=== PATIENT | male | born 1945 | race Caucasian/White ===

== ENCOUNTER 2017-04-21 06:03 | Emergency (ER) | payer OTHER ==
[2017-04-21 06:11] VITALS: RESP 16
--- NOTE | 2017-04-21 06:59 | EDPHY ---
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 this morning with his right arm numb and weak. Patient actually states that he did not have loss of sensation or the sensation of pins and needles but his arm felt strange. When he tried to reach for things or right he felt his arm was weak from the shoulder down. Does not have a history of the same. Patient states over the course 6 hours seemed to improve a little bit but when he was checking in to the waiting room here he was having a hard time signing his name on the consent form. Does not have a history of any neurologic problems in the past. Does have a history of hypertension but has been not been taking his lisinopril recently as his blood pressure was getting too low. Denies any chest pain or shortness of breath. No hearing or vision changes. Was ambulating without any difficulty. No falls. No recent trauma. Patient states he is currently feeling a bit better but states his arm still feels a bit strange. ROS: 10 point Review of Systems is negative except as noted in the HPI. PMH: Hypertension Social History: No smoking Family History: non-contributory Physical Exam: Gen: Awake, Alert, No Distress HEENT: Nose: no rhinorrhea Eyes: PERRLA, EOMI Mouth: Moist mucosa Neck: Supple, no JVD Chest: nontender, lungs clear to auscultation Heart: S1, S2 normal, no murmur Abd: Soft, non-tender, no guarding Back: no CVA tenderness, no midline tenderness Ext: no edema, non-tender Skin: no rash Neuro: CN II-XII intact, Sensation grossly intact, Strength 5/5 in bilateral upper and lower extremities, normal cerebellar exam Right arm: The patient is neurologically intact in the radial, median, and ulnar nerve distribution. He has normal pinprick sensation in all dermatomes of his right upper extremity. He has normal fence laborer strength. He has normal dexterity with finger tapping. (Brian Abbasi) Constitutional: Initial Vital Signs Temperature (C) 36.5 C 04/21/17 06:07 Heart Rate 84 04/21/17 06:07 Respiratory Rate 16 04/21/17 06:07 Blood Pressure 144/77 H 04/21/17 06:07 O2 Sat (%) 96 04/21/17 06:07 O2 Delivery Mode Room Air Allergies/Adverse Reactions: No Known Allergies Allergy (Unverified 04/21/17 06:05) Home Medications: Medication Instructions Recorded Finasteride 04/21/17 Medical Decision Making - Diagnostics Imaging Results: Imaging Impressions Brain MRI 04/21/17 06:51 Impression: 1. Mild underlying periventricular and deep hemispheric white matter change which is nonspecific and can be seen with small vessel ischemic disease. There is one small focus of abnormal signal intensity in the peripheral cortex with diffusion restriction in the posterior left frontal lobe which could represent a small acute lacunar infarct. Otherwise, no evidence for acute infarct. 2. Generalized cerebral atrophy. Results called and discussed with Keron Alvarez M.D. on April 21, 2017 at 9:58 a.m. Cervical Spine MRI 04/21/17 06:52 Impression: 1. C5-C6: Moderate central canal stenosis and moderate to severe bilateral neural foraminal stenosis secondary to moderate degenerative disk disease with dorsal disk/osteophyte complex, bilateral uncovertebral osteophytes, and bilateral facet arthropathy. 2. Please see above findings at specific disk levels. Findings and recommendations discussed with Emergency Department physician, Keron Alvarez M.D. at 0930 hours on April 21, 2017. Final report concurs with initial preliminary interpretation. ED Course/Re-evaluation: 71-year-old male waking with arm weakness. Has not had any true numbness per history or examination. Symptoms have improved here. He is able to write his name without difficulty and states that the pen male feels normal in his hand. Patient has been signed out to Dr. Keron Alvarez pending MRI. (Brian Abbasi) Other Provider: Patient signed out to me at 0700, pending MRI brain. At 10am, patient's MRI called to me as postivie for small lacunar infarct near right motor strip, c- spine shows canal stenosis at multiple levels, especially C5-6. I explained these findings to the patient in detail, and consulted Dr. Yang from Neurology. He recommends admission to the hospital for CTA, echo etc. The patient refuses however. He agrees to take a daily baby aspirin and follow-up closely with Neurology. He understands I am unable to rule out potential source for new and larger stroke, and he agrees to return for any worsening of condition. ( Keron Alvarez) - Data Points Laboratory Results: Laboratory Results 04/21/17 06:55 04/21/17 06:55 04/21/17 04/21/17 06:55 06:55 WBC 5.35 10^3/uL 10^3/uL (3.80-9.50) RBC 5.09 10^6/uL 10^6/uL (4.40-6.38) Hgb 16.7 g/dL g/dL (13.7-17.5) Hct 48.5 % % (40.0-51.0) MCV 95.3 fL fL (81.5-99.8) MCH 32.8 pg pg (27.9-34.1) MCHC 34.4 g/dL g/dL (32.4-36.7) RDW 12.7 % % (11.5-15.2) Plt Count 121 10^3/uL L 10^3/uL (150-400) MPV 10.2 fL fL (8.7-11.7) Neut % (Auto) 59.8 % % (39.3-74.2) Lymph % (Auto) 22.8 % % (15.0-45.0) [place] % (Auto) 10.5 % % (4.5-13.0) Eos % (Auto) 6.0 % % (0.6-7.6) Baso % (Auto) 0.7 % % (0.3-1.7) Nucleat RBC Rel Count 0.0 % % (0.0-0.2) Absolute Neuts (auto) 3.20 10^3/uL 10^3/uL (1.70-6.50) Absolute Lymphs (auto) 1.22 10^3/uL 10^3/uL (1.00-3.00) Absolute Monos (auto) 0.56 10^3/uL 10^3/uL (0.30-0.80) Absolute Eos (auto) 0.32 10^3/uL 10^3/uL (0.03-0.40) Absolute Basos (auto) 0.04 10^3/uL 10^3/uL (0.02-0.10) Absolute Nucleated RBC 0.00 10^3/uL 10^3/uL (0-0.01) Immature Gran % 0.2 % % (0.0-1.1) Immature Gran # 0.01 10^3/uL 10^3/uL (0.00-0.10) Sodium 139 mEq/L mEq/L (134-144) Potassium 4.3 mEq/L mEq/L (3.5-5.2) Chloride 106 mEq/L mEq/L (97-110) Carbon Dioxide 22 mEq/l mEq/l (22-31) Anion Gap 11 mEq/L mEq/L (8-16) BUN 20 mg/dL mg/dL (7-23) Creatinine 1.1 mg/dL mg/dL (0.7-1.3) Estimated GFR > 60 Glucose 99 mg/dL mg/dL (70-100) Calcium 9.1 mg/dL mg/dL (8.5-10.4) Troponin I < 0.012 ng/mL ng/mL (0.000-0.034) Departure - Departure Disposition: Home, Routine, Self-Care Clinical Impression: Cervical stenosis of spinal canal, Right arm numbness, Lacunar infarct, acute Condition: Good Instructions: Cervical Spinal Stenosis (ED) Additional Instructions: Follow-up with Dr. Yang from Neurology as soon as possible, within one week. Call them today to schedule an appointment - make sure you tell them that you were seen in the ER and that Dr. Yang was consulted. Also follow-up with a patient account specialist within 1-2 weeks. Return to the ED immediately for fever, worsening numbness or weakness, headache, vision change or other concerns. Take a baby aspirin daily. Referrals: Deepali Pierce FNP [Primary Care Provider] - As per Instructions Brian Yang DO [Medical Doctor] - As per Instructions Adilson Johns MD [Medical Doctor] - As per Instructions
[2017-04-21 07:05] LABS: % IMMATURE GRANULYOCYTES 0.2 % (0.0-1.1); ABSOLUTE IMMATURE GRANULOCYTES 0.01 10^3/uL (0.00-0.10); ADD DIFF? NO; ADD MORPH? NO; ADD SCAN? NO; ATYPICAL LYMPHOCYTE FLAG 10 (0-99); FRAGMENT RBC FLAG 0 (0-99); HEMATOCRIT 48.5 % (40.0-51.0); HEMOGLOBIN 16.7 g/dL (13.7-17.5); LEFT SHIFT FLG 0 (0-99); LIPEMIA HEMOLYSIS FLAG 90 (0-99); MEAN CELL HEMOGLOBIN 32.8 pg (27.9-34.1); MEAN CELL HEMOGLOBIN CONCENTR. 34.4 g/dL (32.4-36.7); MEAN CELL VOLUME 95.3 fL (81.5-99.8); MEAN PLATELET VOLUME 10.2 fL (8.7-11.7); PLATELET CLUMPS FLAG 0 (0-99); PLATELET COUNT 121 10^3/uL (150-400); RED BLOOD CELL COUNT 5.09 10^6/uL (4.40-6.38); RED CELL DISTRIBUTION WIDTH 12.7 % (11.5-15.2)
--- NOTE | 2017-04-21 07:13 | CPEKG ---
Heart Rate: 74 RR Interval: 811 P-R Interval: 168 QRSD Interval: 78 QT Interval: 368 QTC Interval: 409 P [place]: 48 QRS [place]: 30 T Wave [place]: 45 EKG Severity - NORMAL ECG - EKG Impression: SINUS RHYTHM Electronically Signed By: Masood Martin 22-Apr-2017 12:25:58
[2017-04-21 07:15] LABS: ANION GAP 11 mEq/L (8-16); CALCIUM 9.1 mg/dL (8.5-10.4); CARBON DIOXIDE 22 mEq/l (22-31); CHLORIDE 106 mEq/L (97-110); CREATININE 1.1 mg/dL (0.7-1.3); GLOMERULAR FILTRATION RATE > 60; GLUCOSE 99 mg/dL (70-100); POTASSIUM 4.3 mEq/L (3.5-5.2); SODIUM 139 mEq/L (134-144)
[2017-04-21 07:26] LABS: TROPONIN I < 0.012 ng/mL (0.000-0.034)
[2017-04-21 10:44] VITALS: BP 124/77; PULSE 78; TEMP 97.9; O2SAT 95
== END 2017-04-21 10:44 | disposition home or self-care (01) ==
DX: I63.9 Cerebral infarction, unspecified (principal); M48.02 Spinal stenosis, cervical region; I10 Essential (primary) hypertension

== ENCOUNTER → 2017-06-08 | Outpatient (CLI) | payer OTHER ==
[~2017-06-08] MED LIST: IOPAMIDOL (ISOVUE 370) 100 ML BTL IV ONE
== END ==
LOC: FIMAGING 10:07
PROVIDERS: ATTEND Internal Medicine Cardiovascular Disease
DX: I70.91 Generalized atherosclerosis (principal); M48.02 Spinal stenosis, cervical region
CPT/HCPCS: Q9967

== ENCOUNTER → 2018-11-24 | Outpatient (CLI) | payer OTHER | LOC: FIMAGING 19:25 | PROVIDERS: ATTEND Physician Assistant | DX: M24.851 Other specific joint derangements of right hip, not elsewhere classified (principal); M65.251 Calcific tendinitis, right thigh ==

== ENCOUNTER → 2018-12-08 | Outpatient (CLI) | payer OTHER ==
[~2018-12-08] MED LIST changes: +BUPIVACAINE 0.25% 30 ML SDV ONE; +DEPO METHYLPREDNISOLONE 40 MG/ML SDV ONE; -IOPAMIDOL (ISOVUE 370) 100 ML BTL IV ONE; +LIDOCAINE 1% 300 MG/30 ML SDV ONE
== END ==
LOC: FIMAGING 12:38
PROVIDERS: ATTEND Physician Assistant
PROC: 3E0233Z Introduction of Anti-inflammatory into Muscle, Percutaneous Approach (ICD-10-PCS; principal; 2018-12-08)
DX: M65.252 Calcific tendinitis, left thigh (principal)
CPT/HCPCS: 20550; 76942; J1030

== ENCOUNTER → 2019-02-02 | Outpatient (CLI) | payer OTHER | LOC: BMCIMAGING 09:19 ==